=== PATIENT | female | born 2000 | race Two or more races ===

== ENCOUNTER 2021-11-18 15:22 | Emergency (ER) | payer MEDICAID ==
[~2021-11-18] VITALS: Ht 165.1 cm; Wt 55.8 kg
[2021-11-18 15:32] VITALS: BP 133/60
[2021-11-18 16:18] LABS: Hemoglobin 9.1 g/dL (12.2-16.2)
[2021-11-18 16:24] LABS: Hematocrit 27.2 % (36.0-46.0); Mean Corpuscular Hgb Conc. 33.3 g/dL (32.0-36.0); Red Blood Cells 3.63 10^6/uL (4.0-5.20); Red Cell Distribution Width 16.1 % (11.8-14.3)
[2021-11-18 16:27] LABS: Basophils % (manual) 0 (0.0-2.0); Blast Cells 0; Eosinophils % (manual) 0 (0-7); Myelocytes % 0; Promyelocytes % 0; Reactive Lymphocytes 0
[2021-11-18 16:37] LABS: Albumin 2.9 g/dL (3.4-5.0); BUN/Creatinine Ratio 19.7; Potassium 3.9 mmol/L (3.5-5.1)
[2021-11-18 16:41] LABS: Bilirubin, Total 0.2 mg/dL (0.2-1.0); Calcium 8.6 mg/dL (8.5-10.1); Total Protein 6.9 g/dL (6.4-8.2)
[2021-11-18 16:51] LABS: Band Neutrophils % (manual) 2; Lymphocytes % (manual) 12 (10.0-50.0); Metamyelocytes % 1; Monocytes % (manual) 4 (0-12)
== END 2021-11-18 19:25 | disposition home or self-care (01) ==
LOC: ER 15:22
DX: O99.013 Anemia complicating pregnancy, third trimester (principal); D64.89 Other specified anemias; E46 Unspecified protein-calorie malnutrition; Z68.20 Body mass index [BMI] 20.0-20.9, adult; Z3A.36 36 weeks gestation of pregnancy
CPT/HCPCS: 36415; 76805; 80053; 84702; 85007; 85027

== ENCOUNTER 2021-11-25 01:00 | Inpatient (IN) | payer MEDICAID ==
[2021-11-25] VITALS (14 sets, daily range): BP systolic 103–126; BP diastolic 54–86
[~2021-11-25] VITALS: Ht 165.1 cm; Wt 55.8 kg
[2021-11-25 01:55] LABS: Alcohol, Urine < 3.0 mg/dL (0-10); Amphetamine Screen, Urine NEGATIVE (NEGATIVE); Barbiturate Scree,Urine NEGATIVE (NEGATIVE); Benzodiazephine Screen, Urine NEGATIVE (NEGATIVE); Cannabinoid Screen, Urine NEGATIVE (NEGATIVE); Cocaine Screen, Urine NEGATIVE (NEGATIVE); Opiate Scree,Urine NEGATIVE (NEGATIVE); Phencyclidine Screen, Urine NEGATIVE (NEGATIVE)
[2021-11-25] MEDS ORDERED: LACTATED RINGER'S 1,000 ML IV ONE (02:00)
[2021-11-25] MEDS ORDERED: ceFAZolin 1GM/50ML 50 ML IV ONE (02:00)
[2021-11-25 02:15] LABS: Urine Bacteria NONE SEEN /hpf (None Seen); Urine Blood Negative /uL (Negative); Urine Mucus FEW (None Seen); Urine Specific Gravity 1.029 (1.001-1.035); Urine WBC 5 /hpf (0 - 5)
[2021-11-25] MEDS ORDERED: SUCCINYLCHOLINE CHLORIDE 20 MG/ML 10ML VIAL IV ONE (02:19)
[2021-11-25] MEDS ORDERED: PROPOFOL 10 MG/ML 20 ML IV ONE (02:22)
[2021-11-25] MEDS ORDERED: fentaNYL CITRATE 100 MCG/2 ML VL ONE (02:22)
[2021-11-25 02:23] LABS: Albumin 2.7 g/dL (3.4-5.0); BUN/Creatinine Ratio 23.6; Calcium 8.6 mg/dL (8.5-10.1); INR 0.94 (0.9-1.15); Partial Thromboplastin Time 23.9 sec (23.6-33.0); Potassium 3.5 mmol/L (3.5-5.1)
[2021-11-25 02:27] LABS: Bilirubin, Total 0.3 mg/dL (0.2-1.0); Total Protein 6.7 g/dL (6.4-8.2)
[2021-11-25] MEDS ORDERED: ROCURONIUM 10MG/ML 10ML VIAL IV ONE (02:27)
[2021-11-25 02:29] LABS: Basophils # (auto) 0 10 ^3/uL (0-0.2); Basophils % (auto) 0.3 % (0.0-2.0); Eosinophils # (auto) 0 10 ^3/uL (0-0.8); Eosinophils % (auto) 0.3 % (0.0-7.0); Hemoglobin 9.2 g/dL (12.2-16.2); Lymphocytes # (auto) 1.3 10 ^3/uL (0.4-5.4); Lymphocytes % (auto) 12.4 % (10.0-50.0); Mean Corpuscular Hemoglobin 24.8 pg (28.0-32.0); Mean Corpuscular Hgb Conc. 32.7 g/dL (32.0-36.0); Mean Corpuscular Volume 75.8 fL (80.0-100.0); Monocytes # (auto) 0.5 10 ^3/uL (0-1.3); Monocytes % (auto) 5.4 % (0.0-12.0); Neutrophils # (auto) 8.2 10 ^3/uL (1.6-8.6); Neutrophils % (auto) 81.6 % (37.0-80.0); Nucleated Red Blood Cells % 0.2 %; Red Blood Cells 3.69 10^6/uL (4.0-5.20); Red Cell Distribution Width 16.4 % (11.8-14.3); White Blood Cell 10.1 10^3/uL (4.4-10.8)
[2021-11-25] MEDS ORDERED: oxyTOCIN 10 UNIT/ML 10ML VIAL ONE (02:51)
[2021-11-25] MEDS ORDERED: CARBOPROST TROMETHAMINE 250 MCG/1ML VIAL IM ONE (02:55)
[2021-11-25] MEDS ORDERED: METOCLOPRAMIDE HCL 5MG/ml INJ 2ml VIAL ONE (03:08)
[2021-11-25] MEDS ORDERED: NEOSTIGMINE 1 MG/ML INJ (10mg/10ML VIAL) ONE (03:11)
[2021-11-25] MEDS ORDERED: GLYCOPYRROLATE 0.2 MG/ML 1ML VIAL ONE (03:12)
[2021-11-25] MEDS ORDERED: ceFAZolin 1GM/50ML 50 ML IV SCH (03:15)
[2021-11-25] MEDS ORDERED: ONDANSETRON HCL 4 MG/2 ML VIAL IV PRN ×2 (03:15→03:30)
[2021-11-25] MEDS ORDERED: HYDROmorphone HCL 2 MG/ML VL/or syr IV PRN ×3 (03:15→03:30)
[2021-11-25] MEDS ORDERED: LACT. RINGERS/OXYTOCIN 20UNITS 1,000 ML IV ONE (03:15)
[2021-11-25] MEDS ORDERED: GUM (CHEWING) 1 GUM CHEW CHEW ONE (03:15)
[2021-11-25] MEDS ORDERED: ACETAMINOPHEN IV 1000 MG/100ML (10MG/ML) IV PRN ×2 (03:30→16:30)
[2021-11-25] MEDS: LACTATED RINGER'S 1,000 ML IV SCH ×3 (07:03→16:32)
[2021-11-25] MEDS ORDERED: PREN27TA7 OR (07:54)
[2021-11-25] MEDS: ceFAZolin 1GM/50ML 50 ML IV SCH ×2 (10:21→17:32)
[2021-11-25 18:59] LABS: Basophils # (auto) 0 10 ^3/uL (0-0.2); Basophils % (auto) 0.1 % (0.0-2.0); Eosinophils # (auto) 0 10 ^3/uL (0-0.8); Hemoglobin 8.1 g/dL (12.2-16.2)
[2021-11-25 19:01] LABS: Hematocrit 24.9 % (36.0-46.0); Lymphocytes # (auto) 0.9 10 ^3/uL (0.4-5.4); Mean Corpuscular Hemoglobin 24.5 pg (28.0-32.0); Mean Corpuscular Hgb Conc. 32.6 g/dL (32.0-36.0); Mean Corpuscular Volume 75.2 fL (80.0-100.0); Monocytes # (auto) 0.8 10 ^3/uL (0-1.3); Monocytes % (auto) 4.6 % (0.0-12.0); Neutrophils # (auto) 16.1 10 ^3/uL (1.6-8.6); Neutrophils % (auto) 90.3 % (37.0-80.0); Red Cell Distribution Width 16.5 % (11.8-14.3); White Blood Cell 17.8 10^3/uL (4.4-10.8)
[2021-11-26 03:00] VITALS: BP 108/62
[2021-11-26] MEDS: ceFAZolin 1GM/50ML 50 ML IV SCH (03:23)
[2021-11-26] MEDS ORDERED: D5W/LACTATED RINGERS 1,000 ML IV SCH (03:30)
[2021-11-26] MEDS ORDERED: SODIUM CHLORIDE 0.9% 1,000 ML IV SCH (03:30)
[2021-11-26] MEDS ORDERED: HYDROcodone-ACET 5/325MG TAB PO PRN (03:30)
[2021-11-26] MEDS ORDERED: LACTATED RINGER'S 1,000 ML IV SCH ×2 (03:30→11:00)
[2021-11-26] MEDS ORDERED: BISACODYL 10 MG RECT SUPP PR PRN (03:30)
[2021-11-26 05:59] LABS: Basophils # (auto) 0 10 ^3/uL (0-0.2); Basophils % (auto) 0.2 % (0.0-2.0); Eosinophils # (auto) 0 10 ^3/uL (0-0.8); Eosinophils % (auto) 0.1 % (0.0-7.0); Hematocrit 25.3 % (36.0-46.0); Hemoglobin 8.2 g/dL (12.2-16.2); Mean Corpuscular Hemoglobin 24.5 pg (28.0-32.0); Mean Corpuscular Hgb Conc. 32.4 g/dL (32.0-36.0); Mean Corpuscular Volume 75.7 fL (80.0-100.0); Monocytes # (auto) 0.7 10 ^3/uL (0-1.3); Neutrophils # (auto) 14.4 10 ^3/uL (1.6-8.6); Neutrophils % (auto) 89.7 % (37.0-80.0); Red Blood Cells 3.34 10^6/uL (4.0-5.20); Red Cell Distribution Width 16.9 % (11.8-14.3); White Blood Cell 16.1 10^3/uL (4.4-10.8)
[2021-11-26 06:40] VITALS: BP 114/72
[2021-11-26] MEDS: HYDROcodone-ACET 5/325MG TAB PO PRN ×2 (06:42→16:23)
[2021-11-26] MEDS: SIMETHICONE 80 MG CHEWABLE TABLET PO SCH ×4 (07:01→22:06)
[2021-11-26] MEDS ORDERED: DOCUSATE CALCIUM 240 MG CAP PO SCH (10:00)
[2021-11-26] MEDS ORDERED: DOCUSATE SOD 100 MG CAP PO SCH (10:00)
[2021-11-26] MEDS: IBUPROFEN 800 MG TAB PO PRN (10:31)
[2021-11-26 10:33] VITALS: BP 119/66
[2021-11-26] MEDS ORDERED: DOCUSATE SOD 100 MG CAP PO ONE (13:00)
[2021-11-26 14:30] VITALS: BP 121/68
[2021-11-26 19:30] VITALS: BP 104/74
[2021-11-26 23:30] VITALS: BP 113/70
[2021-11-27] MEDS: HYDROcodone-ACET 5/325MG TAB PO PRN (00:51)
[2021-11-27 03:00] VITALS: BP 111/71
[2021-11-27 05:35] LABS: RPR Non Reactive (Non Reactive)
[2021-11-27] MEDS: SIMETHICONE 80 MG CHEWABLE TABLET PO SCH ×4 (05:54→22:00)
[2021-11-27 06:32] LABS: Rubella Antibodies, IgG 2.22 index (Immune >0.99)
[2021-11-27 07:30] VITALS: BP 105/67
[2021-11-27] MEDS ORDERED: DOCUSATE SOD 100 MG CAP PO SCH (10:00)
[2021-11-27 11:25] VITALS: BP 108/67
[2021-11-27 15:20] VITALS: BP 107/70
[2021-11-27] MEDS: IBUPROFEN 800 MG TAB PO PRN (17:52)
[2021-11-27 19:30] VITALS: BP 105/63
[2021-11-27 23:30] VITALS: BP 113/68
[2021-11-28 03:00] VITALS: BP 110/68
[2021-11-28] MEDS: SIMETHICONE 80 MG CHEWABLE TABLET PO SCH (06:00)
[2021-11-28 07:14] VITALS: BP 107/68
[2021-11-28] MEDS ORDERED: IBUP800T27 PO (10:09)
[2021-11-28] MEDS ORDERED: DOCU-94 PO (10:09)
[2021-11-28 11:00] VITALS: BP 102/72
== END 2021-11-28 11:15 | disposition home or self-care (01) | DRG 540 ==
LOC: LDRP 01:00 → OBSVTOIN 01:48 → LDRP 01:49
PROVIDERS: ADMIT Obstetrics & Gynecology; ATTEND Obstetrics & Gynecology
PROC: 10D00Z1 Extraction of Products of Conception, Low, Open Approach (ICD-10-PCS; principal; 2021-11-25 02:37)
DX: O32.1XX0 Maternal care for breech presentation, not applicable or unspecified (principal); Z20.822 Contact with and (suspected) exposure to COVID-19; Z37.0 Single live birth; Z3A.37 37 weeks gestation of pregnancy
CPT/HCPCS: 36415; 59025; 76805; 80053; 80307; 81001; 81002; 84112; 85025; 85610; 85730; 86592; 86703; 86762; 86850; 86900; 86901; 86920; 87340; 94760; 96360; 96361; 96365; 96366; 96374; G0378; J0131; J0330; J0690; J2590; J2704